=== PATIENT | male | born 1960 | race African-American/Black ===

== ENCOUNTER 2021-02-17 00:06 | Emergency (ER) | payer OTHER ==
[2021-02-17] MEDS ORDERED: Ketorolac Tromethamine 30 MG/ML VIAL ONE (00:47)
[2021-02-17 00:48] LABS: Bilirubin Neg (Negative); Blood, Urine Negative (Negative); Clarity Clear (Clear); Glucose, Urine (Dipstick) Normal (Negative); Ketone, Urine Negative (Negative); Leukocyte 100 (Negative); Nitrite Negative (Negative); Protein, Urine (Dipstick) Negative (Neg-Trace); Urobilinogen Normal mg/dL (Less than 2)
[2021-02-17 01:10] LABS: #Basophils 0.1 10x3/uL (0.0-0.2); #Eosinphils 0.2 10x3/uL (0.0-0.5); #Neutrophils 4.5 10x3/uL (1.5-8.4); %Basophils 0.7 % (0.0-2.0); %Eosinophils 2.5 % (0.0-6.0); %Monocytes 11.4 % (0.0-10.0); %Neutrophils 49.2 % (40.0-75.0); Hemoglobin 12.4 g/dL (13.5-17.5); Mean Corpuscular HGB CONC 32.7 g/dL (32.0-36.0); Mean Corpuscular Hemoglobin 28.1 pg (27.0-33.0); Mean Corpuscular Volume 85.9 fl (81.2-95.1); Mean Platelet Volume 9.1 fl (7.4-10.4); Platelet Count 252 10x3/uL (150-450); RBC Distribution Width 14.1 % (11.5-14.5); Red Blood Cell (RBC) Count 4.41 10x6/uL (4.32-5.72); White Blood Cell (WBC) Count 9.1 10x3/uL (3.5-10.5)
[2021-02-17 01:21] LABS: ALT (SGPT) 16 U/L (8-55); AST (SGOT) 15 U/L (5-34); Albumin 3.9 g/dL (3.4-4.8); Alkaline Phosphatase 84 U/L (40-110); Anion Gap 14 mmol/L (10-20); BUN (Urea Nitrogen) 17 mg/dL (8.4-25.7); Bilirubin, Total 0.4 mg/dL (0.2-1.2); Calc. Creatinine Clearance 0 mL/min (70-130); Calcium 8.7 mg/dL (7.8-10.44); Carbon Dioxide 27 mmol/L (23-31); Chloride 100 mmol/L (98-107); Globulin 3.4 g/dL (2.4-3.5); Glucose 105 mg/dL (80-115); Potassium 3.7 mmol/L (3.5-5.1); Protein, Total 7.3 g/dL (5.8-8.1); Sodium 137 mmol/L (136-145)
[2021-02-17 01:28] LABS: RBC/HPF None Seen HPF (0-3); Squamous Epithelial 0-3 HPF (0-3); Transitional Epithelial 0-3 HPF (None Seen)
[2021-02-17 01:29] LABS: Bacteria/HPF Rare-Few HPF (None Seen)
== END 2021-02-17 04:52 ==
LOC: CSHERS 00:06
DX: M54.6 Pain in thoracic spine (principal); L08.9 Local infection of the skin and subcutaneous tissue, unspecified; Z86.16 Personal history of COVID-19; K21.9 Gastro-esophageal reflux disease without esophagitis; I10 Essential (primary) hypertension; E78.00 Pure hypercholesterolemia, unspecified; J45.909 Unspecified asthma, uncomplicated; N40.0 Benign prostatic hyperplasia without lower urinary tract symptoms; G47.30 Sleep apnea, unspecified; Z79.82 Long term (current) use of aspirin; Z79.51 Long term (current) use of inhaled steroids; Z79.899 Other long term (current) drug therapy
CPT/HCPCS: 74176; 80053; 81003; 81015; 85025; 96374; J1885

== ENCOUNTER 2021-06-12 15:22 | Inpatient (IN) | payer OTHER ==
[2021-06-12 16:50] LABS: #Basophils 0.1 10x3/uL (0.0-0.2); #Eosinphils 0.4 10x3/uL (0.0-0.5); #Neutrophils 4.9 10x3/uL (1.5-8.4); %Basophils 0.6 % (0.0-2.0); %Eosinophils 4.4 % (0.0-6.0); %Lymphocytes 30.1 % (18.0-47.0); %Monocytes 10.7 % (0.0-10.0); Hemoglobin 12.4 g/dL (13.5-17.5); Mean Corpuscular HGB CONC 31.8 g/dL (32.0-36.0); Mean Corpuscular Hemoglobin 28.4 pg (27.0-33.0); Mean Corpuscular Volume 89.4 fl (81.2-95.1); Platelet Count 282 10x3/uL (150-450); RBC Distribution Width 13.8 % (11.5-14.5); Red Blood Cell (RBC) Count 4.36 10x6/uL (4.32-5.72); White Blood Cell (WBC) Count 9.1 10x3/uL (3.5-10.5)
[2021-06-12] MEDS ORDERED: HYDROcodone/Acetaminophen 7.5/325 mg Tablet ONE (16:56)
[2021-06-12 17:12] LABS: ALT (SGPT) 20 U/L (8-55); AST (SGOT) 23 U/L (5-34); Albumin 3.7 g/dL (3.4-4.8); Alkaline Phosphatase 77 U/L (40-110); Anion Gap 13 mmol/L (10-20); BUN (Urea Nitrogen) 14 mg/dL (8.4-25.7); Bilirubin, Total 0.3 mg/dL (0.2-1.2); Calc. Creatinine Clearance 0 mL/min (70-130); Calcium 9.2 mg/dL (7.8-10.44); Carbon Dioxide 29 mmol/L (23-31); Chloride 101 mmol/L (98-107); Globulin 3.6 g/dL (2.4-3.5); Glucose 101 mg/dL (80-115); Potassium 4.2 mmol/L (3.5-5.1); Protein, Total 7.3 g/dL (5.8-8.1); Sodium 139 mmol/L (136-145)
[2021-06-12] MEDS ORDERED: Ondansetron PF 4 MG/2 ML Vial IVP PRN (19:47)
[2021-06-12] MEDS ORDERED: Ondansetron ODT 4 MG TAB PO PRN (19:47)
[2021-06-12] MEDS ORDERED: Acetaminophen 325 MG TAB PO PRN (19:47)
[2021-06-12] MEDS: HYDROcodone/Acetaminophen 5/325 mg Tablet PO PRN (23:27)
[2021-06-12] MEDS ORDERED: Lisinopril 10 MG TAB PO SCH (23:30)
[2021-06-12] MEDS ORDERED: Atorvastatin Calcium 40 MG TAB PO SCH (23:30)
[2021-06-13 00:03] VITALS: BMI 53.7
[2021-06-13] MEDS: VANCOMYCIN 2 GRAM/400 ML BAG 2 GM in Premix Bag 1 BAG IVPB SCH ×2 (04:45→18:12)
[2021-06-13 05:17] LABS: #Basophils 0.1 10x3/uL (0.0-0.2); #Eosinphils 0.4 10x3/uL (0.0-0.5); #Monocytes 1.1 10x3/uL (0.0-1.1); #Neutrophils 4.5 10x3/uL (1.5-8.4); %Basophils 0.8 % (0.0-2.0); %Eosinophils 4.1 % (0.0-6.0); %Lymphocytes 28.4 % (18.0-47.0); %Neutrophils 53.2 % (40.0-75.0); Hemoglobin 12.3 g/dL (13.5-17.5); Mean Corpuscular HGB CONC 32.6 g/dL (32.0-36.0); Mean Corpuscular Hemoglobin 28.4 pg (27.0-33.0); Mean Corpuscular Volume 87.1 fl (81.2-95.1); Mean Platelet Volume 8.9 fl (7.4-10.4); Platelet Count 259 10x3/uL (150-450); Red Blood Cell (RBC) Count 4.33 10x6/uL (4.32-5.72); White Blood Cell (WBC) Count 8.5 10x3/uL (3.5-10.5)
[2021-06-13 05:22] LABS: ALT (SGPT) 17 U/L (8-55); AST (SGOT) 17 U/L (5-34); Albumin 3.4 g/dL (3.4-4.8); Alkaline Phosphatase 83 U/L (40-110); Anion Gap 14 mmol/L (10-20); BUN (Urea Nitrogen) 13 mg/dL (8.4-25.7); Bilirubin, Total 0.2 mg/dL (0.2-1.2); Calc. Creatinine Clearance 263 mL/min (70-130); Carbon Dioxide 24 mmol/L (23-31); Chloride 103 mmol/L (98-107); Globulin 3.5 g/dL (2.4-3.5); Glucose 102 mg/dL (80-115); Magnesium 2.1 mg/dL (1.6-2.6); Potassium 3.8 mmol/L (3.5-5.1); Protein, Total 6.9 g/dL (5.8-8.1); Sodium 137 mmol/L (136-145)
[2021-06-13] MEDS: HYDROcodone/Acetaminophen 5/325 mg Tablet PO PRN ×5 (05:55→22:28)
[2021-06-13] MEDS: Carvedilol 12.5 MG TAB PO SCH ×2 (08:21→18:10)
[2021-06-13] MEDS: Lisinopril 10 MG TAB PO SCH ×2 (08:21→22:25)
[2021-06-13] MEDS: Aspirin 81 mg Enteric Coated Tablet PO SCH (08:22)
[2021-06-13] MEDS: Enoxaparin Sodium 40 MG/0.4 ML SYRINGE SC SCH (08:22)
[2021-06-13] MEDS ORDERED: Amlodipine 5 MG TAB PO SCH (09:00)
[2021-06-13] MEDS ORDERED: Lidocaine 1% w/Epinephrine 1:100K 20 ML VIAL IJ SCH (13:45)
[2021-06-13 14:36] LABS: SARS-CoV-2 PCR by NAA Not Detected (NotDetected)
[2021-06-13] MEDS ORDERED: Atorvastatin Calcium 40 MG TAB PO SCH (21:00)
[2021-06-13] MEDS ORDERED: Carvedilol 12.5 MG TAB PO SCH (21:00)
[2021-06-13] MEDS: Atorvastatin Calcium 40 MG TAB PO SCH (22:26)
[2021-06-14] MEDS: HYDROcodone/Acetaminophen 5/325 mg Tablet PO PRN ×6 (02:17→21:54)
[2021-06-14 05:16] LABS: #Basophils 0.1 10x3/uL (0.0-0.2); #Eosinphils 0.3 10x3/uL (0.0-0.5); #Neutrophils 4.7 10x3/uL (1.5-8.4); %Basophils 0.7 % (0.0-2.0); %Lymphocytes 28.6 % (18.0-47.0); %Monocytes 11.3 % (0.0-10.0); %Neutrophils 55.2 % (40.0-75.0); Hemoglobin 12.4 g/dL (13.5-17.5); Mean Corpuscular HGB CONC 32.3 g/dL (32.0-36.0); Mean Corpuscular Hemoglobin 28.4 pg (27.0-33.0); Mean Corpuscular Volume 88.1 fl (81.2-95.1); Mean Platelet Volume 9.2 fl (7.4-10.4); Platelet Count 277 10x3/uL (150-450); RBC Distribution Width 13.7 % (11.5-14.5); Red Blood Cell (RBC) Count 4.36 10x6/uL (4.32-5.72); White Blood Cell (WBC) Count 8.4 10x3/uL (3.5-10.5)
[2021-06-14 05:26] LABS: Anion Gap 13 mmol/L (10-20); BUN (Urea Nitrogen) 12 mg/dL (8.4-25.7); Calc. Creatinine Clearance 259 mL/min (70-130); Calcium 9.3 mg/dL (7.8-10.44); Carbon Dioxide 25 mmol/L (23-31); Chloride 104 mmol/L (98-107); Glucose 105 mg/dL (80-115); Potassium 3.9 mmol/L (3.5-5.1); Sodium 138 mmol/L (136-145)
[2021-06-14] MEDS: VANCOMYCIN 2 GRAM/400 ML BAG 2 GM in Premix Bag 1 BAG IVPB SCH ×2 (05:53→18:17)
[2021-06-14] MEDS: Carvedilol 12.5 MG TAB PO SCH ×2 (08:19→18:17)
[2021-06-14] MEDS: Loratadine 10 MG TAB PO SCH (08:19)
[2021-06-14] MEDS: Hydrochlorothiazide 25 MG TAB PO SCH (08:19)
[2021-06-14] MEDS: Aspirin 81 mg Enteric Coated Tablet PO SCH (08:19)
[2021-06-14] MEDS: Amlodipine 10 MG TAB PO SCH (08:19)
[2021-06-14] MEDS: Enoxaparin Sodium 40 MG/0.4 ML SYRINGE SC SCH (08:19)
[2021-06-14] MEDS: Lisinopril 10 MG TAB PO SCH ×2 (08:19→21:54)
[2021-06-14] MEDS: FLUoxetine HCl 20 MG CAP PO SCH (08:19)
[2021-06-14] MEDS ORDERED: Non-Formulary Medication 1 EACH (Lisinopril [Lisinopril] 40 MG Tablet) PO SCH (09:00)
[2021-06-14] MEDS: Atorvastatin Calcium 40 MG TAB PO SCH (21:54)
[2021-06-15] MEDS: Vancomycin 1.5 GRAM/300 ML BAG 1.5 GM in Premix Bag 1 BAG IVPB SCH ×2 (00:58→10:02)
[2021-06-15] MEDS: HYDROcodone/Acetaminophen 5/325 mg Tablet PO PRN ×4 (01:03→14:07)
[2021-06-15 06:02] LABS: Anion Gap 14 mmol/L (10-20); BUN (Urea Nitrogen) 18 mg/dL (8.4-25.7); Calc. Creatinine Clearance 221 mL/min (70-130); Calcium 9.7 mg/dL (7.8-10.44); Carbon Dioxide 27 mmol/L (23-31); Chloride 100 mmol/L (98-107); Glucose 111 mg/dL (80-115); Sodium 137 mmol/L (136-145)
[2021-06-15 06:09] LABS: #Basophils 0.1 10x3/uL (0.0-0.2); #Eosinphils 0.4 10x3/uL (0.0-0.5); #Neutrophils 4.9 10x3/uL (1.5-8.4); %Basophils 0.5 % (0.0-2.0); %Eosinophils 4.4 % (0.0-6.0); %Lymphocytes 30.2 % (18.0-47.0); %Monocytes 10.9 % (0.0-10.0); %Neutrophils 53.6 % (40.0-75.0); Hemoglobin 12.5 g/dL (13.5-17.5); Mean Corpuscular HGB CONC 32.1 g/dL (32.0-36.0); Mean Corpuscular Hemoglobin 28.4 pg (27.0-33.0); Mean Corpuscular Volume 88.4 fl (81.2-95.1); Mean Platelet Volume 8.9 fl (7.4-10.4); Platelet Count 274 10x3/uL (150-450); RBC Distribution Width 13.7 % (11.5-14.5); White Blood Cell (WBC) Count 9.1 10x3/uL (3.5-10.5)
[2021-06-15] MEDS ORDERED: Ciprofloxacin 500 MG TAB PO SCH ×2 (08:45→20:00)
[2021-06-15] MEDS ORDERED: Cephalexin 500 MG CAP PO SCH (09:00)
[2021-06-15] MEDS: Enoxaparin Sodium 40 MG/0.4 ML SYRINGE SC SCH (10:08)
[2021-06-15] MEDS: FLUoxetine HCl 20 MG CAP PO SCH (10:08)
[2021-06-15] MEDS: Loratadine 10 MG TAB PO SCH (10:08)
[2021-06-15] MEDS: Lisinopril 10 MG TAB PO SCH (10:08)
[2021-06-15] MEDS: Aspirin 81 mg Enteric Coated Tablet PO SCH (10:08)
[2021-06-15] MEDS: Amlodipine 10 MG TAB PO SCH (10:09)
[2021-06-15] MEDS: Hydrochlorothiazide 25 MG TAB PO SCH (10:09)
[2021-06-15] MEDS: Carvedilol 12.5 MG TAB PO SCH (10:09)
[2021-06-15 12:03] VITALS: BP 168/98; TEMP 98.3
== END 2021-06-15 16:14 | DRG 603 ==
LOC: CSHERS 15:22 → CSHTELE 22:38
PROVIDERS: ADMIT Internal Medicine; ATTEND Internal Medicine
PROC: 0H9 Skin and Breast, Drainage (ICD-10-PCS; principal; 2021-06-13)
PROC: 0HBMXZZ Excision of Right Foot Skin, External Approach (ICD-10-PCS; 2021-06-13)
DX: L03.115 Cellulitis of right lower limb (principal); B19.10 Unspecified viral hepatitis B without hepatic coma; Z68.43 Body mass index [BMI] 50.0-59.9, adult; Z20.822 Contact with and (suspected) exposure to COVID-19; L02.415 Cutaneous abscess of right lower limb; I10 Essential (primary) hypertension; E78.5 Hyperlipidemia, unspecified; E66.01 Morbid (severe) obesity due to excess calories; Z71.3 Dietary counseling and surveillance; Z87.891 Personal history of nicotine dependence; Z91.018 Allergy to other foods; Z88.2 Allergy status to sulfonamides; Z79.82 Long term (current) use of aspirin; Z79.899 Other long term (current) drug therapy
CPT/HCPCS: 36415; 80048; 80053; 80202; 83735; 85025; 85652; 86140; 94760; 96365; 96366; J1650; J3370; U0003; U0005

== ENCOUNTER 2021-07-10 02:41 | Emergency (ER) | payer OTHER ==
[2021-07-10 03:52] LABS: #Eosinphils 0.4 10x3/uL (0.0-0.5); #Monocytes 1.1 10x3/uL (0.0-1.1); #Neutrophils 4.9 10x3/uL (1.5-8.4); %Basophils 0.4 % (0.0-2.0); %Eosinophils 4.3 % (0.0-6.0); %Lymphocytes 29.1 % (18.0-47.0); %Monocytes 12.3 % (0.0-10.0); %Neutrophils 53.6 % (40.0-75.0); Hemoglobin 11.2 g/dL (13.5-17.5); Mean Corpuscular HGB CONC 32.2 g/dL (32.0-36.0); Mean Corpuscular Hemoglobin 28.5 pg (27.0-33.0); Mean Corpuscular Volume 88.5 fl (81.2-95.1); Mean Platelet Volume 9.8 fl (7.4-10.4); Platelet Count 252 10x3/uL (150-450); RBC Distribution Width 14.6 % (11.5-14.5); Red Blood Cell (RBC) Count 3.93 10x6/uL (4.32-5.72); White Blood Cell (WBC) Count 9.1 10x3/uL (3.5-10.5)
[2021-07-10 04:04] LABS: ALT (SGPT) 19 U/L (8-55); AST (SGOT) 16 U/L (5-34); Albumin 3.7 g/dL (3.4-4.8); Alkaline Phosphatase 89 U/L (40-110); Anion Gap 14 mmol/L (10-20); BUN (Urea Nitrogen) 21 mg/dL (8.4-25.7); Bilirubin, Total 0.3 mg/dL (0.2-1.2); Calc. Creatinine Clearance 0 mL/min (70-130); Calcium 8.8 mg/dL (7.8-10.44); Carbon Dioxide 27 mmol/L (23-31); Chloride 104 mmol/L (98-107); Glucose 110 mg/dL (80-115); Lipase 43 U/L (8-78); Potassium 3.7 mmol/L (3.5-5.1); Protein, Total 6.7 g/dL (5.8-8.1); Sodium 141 mmol/L (136-145)
[2021-07-10] MEDS ORDERED: Amlodipine 10 MG TAB ONE (12:32)
[2021-07-10] MEDS ORDERED: Carvedilol 12.5 MG TAB ONE (12:33)
[2021-07-10] MEDS ORDERED: Aspirin Chewable 81 MG TAB ONE (12:34)
[2021-07-10] MEDS ORDERED: Lisinopril 10 MG TAB ONE (12:34)
[2021-07-10] MEDS ORDERED: Ibuprofen 200 MG TAB ONE (12:35)
== END 2021-07-10 14:57 | disposition short-term general hospital (02) ==
LOC: CSHERS 02:41
DX: R07.9 Chest pain, unspecified (principal); I10 Essential (primary) hypertension; K21.9 Gastro-esophageal reflux disease without esophagitis; Z79.82 Long term (current) use of aspirin; Z79.899 Other long term (current) drug therapy
CPT/HCPCS: 71045; 80053; 83690; 84484; 85025; 93005

== ENCOUNTER 2021-09-28 | Inpatient (IN) | payer OTHER ==
[2021-09-28 00:31] LABS: #Basophils 0.1 10x3/uL (0.0-0.2); #Eosinphils 0.4 10x3/uL (0.0-0.5); #Monocytes 0.9 10x3/uL (0.0-1.1); #Neutrophils 5.8 10x3/uL (1.5-8.4); %Basophils 0.5 % (0.0-2.0); %Eosinophils 3.6 % (0.0-6.0); %Lymphocytes 27.7 % (18.0-47.0); %Monocytes 9.5 % (0.0-10.0); %Neutrophils 58.5 % (40.0-75.0); Hemoglobin 11.7 g/dL (13.5-17.5); Mean Corpuscular HGB CONC 32.1 g/dL (32.0-36.0); Mean Corpuscular Hemoglobin 28.2 pg (27.0-33.0); Mean Platelet Volume 9.1 fl (7.4-10.4); Platelet Count 255 10x3/uL (150-450); RBC Distribution Width 14.1 % (11.5-14.5); Red Blood Cell (RBC) Count 4.15 10x6/uL (4.32-5.72); White Blood Cell (WBC) Count 9.9 10x3/uL (3.5-10.5)
[2021-09-28 00:46] LABS: ALT (SGPT) 21 U/L (8-55); AST (SGOT) 18 U/L (5-34); Albumin 3.9 g/dL (3.4-4.8); Alkaline Phosphatase 82 U/L (40-110); Anion Gap 11 mmol/L (10-20); BUN (Urea Nitrogen) 12 mg/dL (8.4-25.7); Bilirubin, Total 0.3 mg/dL (0.2-1.2); Calc. Creatinine Clearance 0 mL/min (70-130); Calcium 8.2 mg/dL (7.8-10.44); Carbon Dioxide 27 mmol/L (23-31); Chloride 102 mmol/L (98-107); Globulin 3.2 g/dL (2.4-3.5); Glucose 103 mg/dL (80-115); Potassium 3.9 mmol/L (3.5-5.1); Protein, Total 7.1 g/dL (5.8-8.1); Sodium 136 mmol/L (136-145)
[2021-09-28] MEDS ORDERED: Morphine 4 MG/ML VIAL ONE (01:14)
[2021-09-28] MEDS ORDERED: Nitroglycerin 2% Ointment 1 INCH/1 GM Packet ONE (01:15)
[2021-09-28] MEDS ORDERED: Furosemide 40 MG/4 ML VIAL ONE (01:15)
[2021-09-28] MEDS ORDERED: Nitroglycerin 0.4 MG TAB (25 Tab Bottle) SL PRN (04:57)
[2021-09-28] MEDS ORDERED: Senokot S 8.6-50 MG TAB PO PRN (04:57)
[2021-09-28] MEDS ORDERED: Acetaminophen 325 MG TAB PO PRN (04:57)
[2021-09-28] MEDS ORDERED: Ondansetron PF 4 MG/2 ML Vial IVP PRN (04:57)
[2021-09-28] MEDS ORDERED: Calcium Carbonate 500 MG ChewTAB PO PRN (04:57)
[2021-09-28] MEDS: HYDROcodone/Acetaminophen 5/325 mg Tablet PO PRN ×3 (06:20→21:14)
[2021-09-28] MEDS ORDERED: HYDROcodone/Acetaminophen 5/325 mg Tablet ONE ×2 (06:22→12:15)
[2021-09-28] MEDS ORDERED: Furosemide 40 MG TAB ONE (07:21)
[2021-09-28] MEDS: Furosemide 40 MG TAB PO SCH (07:29)
[2021-09-28 07:38] LABS: Troponin I Less than 0.010 ng/mL (< 0.028)
[2021-09-28] MEDS ORDERED: Enoxaparin Sodium 40 MG/0.4 ML SYRINGE SC SCH (09:00)
[2021-09-28] MEDS ORDERED: Aspirin Chewable 81 MG TAB ONE (09:05)
[2021-09-28] MEDS ORDERED: Enoxaparin Sodium 40 MG/0.4 ML SYRINGE ONE (09:06)
[2021-09-28] MEDS ORDERED: Amlodipine 5 MG TAB ONE (09:07)
[2021-09-28] MEDS ORDERED: Communication Order-Pharmacy FS SCH (09:30)
[2021-09-28] MEDS: Aspirin Chewable 81 MG TAB PO SCH (10:17)
[2021-09-28] MEDS: Amlodipine 10 MG TAB PO SCH (10:17)
[2021-09-28] MEDS: Loratadine 10 MG TAB PO SCH (10:18)
[2021-09-28] MEDS: Carvedilol 12.5 MG TAB PO SCH ×2 (10:18→21:15)
[2021-09-28] MEDS: Lisinopril 20 MG TAB PO SCH (10:18)
[2021-09-28] MEDS: Venlafaxine XR 37.5 MG CAP PO SCH (10:19)
[2021-09-28 11:52] LABS: Troponin I Less than 0.010 ng/mL (< 0.028)
[2021-09-28 13:36] LABS: SARS-CoV-2 NAA Rapid Test Not Detected (NotDetected)
[2021-09-28 14:07] LABS: Cardiac Risk 4.1 (Less than 4.5)
[2021-09-28] MEDS ORDERED: Ventolin HFA Inhaler 60 PUFF INHALER INH PRN (14:30)
[2021-09-28] MEDS ORDERED: FLU VACC QS2021-22(6MOS UP)/PF 60 MCG/0.5 ML SYRINGE IM ONE (14:45)
[2021-09-28 16:00] VITALS: BMI 58.8
[2021-09-28] MEDS ORDERED: Atorvastatin Calcium 40 MG TAB PO SCH (21:00)
[2021-09-29 04:21] LABS: INR-International Normal Ratio 0.9; PTT 27.1 sec (22.0-33.0); Prothrombin Time 10.3 sec (9.5-12.1)
[2021-09-29 04:23] LABS: ALT (SGPT) 21 U/L (8-55); AST (SGOT) 16 U/L (5-34); Albumin 3.7 g/dL (3.4-4.8); Alkaline Phosphatase 88 U/L (40-110); Anion Gap 9 mmol/L (10-20); BUN (Urea Nitrogen) 12 mg/dL (8.4-25.7); Bilirubin, Total 0.3 mg/dL (0.2-1.2); Calc. Creatinine Clearance 260 mL/min (70-130); Calcium 8.7 mg/dL (7.8-10.44); Carbon Dioxide 33 mmol/L (23-31); Chloride 100 mmol/L (98-107); Globulin 3.7 g/dL (2.4-3.5); Glucose 117 mg/dL (80-115); Potassium 4.3 mmol/L (3.5-5.1); Protein, Total 7.4 g/dL (5.8-8.1); Sodium 138 mmol/L (136-145)
[2021-09-29 04:34] LABS: #Basophils 0.1 10x3/uL (0.0-0.2); #Eosinphils 0.4 10x3/uL (0.0-0.5); #Neutrophils 5.7 10x3/uL (1.5-8.4); %Basophils 0.6 % (0.0-2.0); %Eosinophils 4.4 % (0.0-6.0); %Lymphocytes 20.4 % (18.0-47.0); %Monocytes 11.3 % (0.0-10.0); Hemoglobin 12.3 g/dL (13.5-17.5); Mean Corpuscular HGB CONC 32.2 g/dL (32.0-36.0); Mean Corpuscular Hemoglobin 28.7 pg (27.0-33.0); Mean Platelet Volume 9.2 fl (7.4-10.4); Platelet Count 251 10x3/uL (150-450); Red Blood Cell (RBC) Count 4.29 10x6/uL (4.32-5.72)
[2021-09-29] MEDS ORDERED: hydrALAZINE 20 MG/ML VIAL SLOW IVP PRN (08:10)
[2021-09-29] MEDS: Furosemide 40 MG TAB PO SCH (08:40)
[2021-09-29] MEDS: Carvedilol 12.5 MG TAB PO SCH (08:41)
[2021-09-29] MEDS: Amlodipine 10 MG TAB PO SCH (08:41)
[2021-09-29] MEDS: Aspirin Chewable 81 MG TAB PO SCH (08:41)
[2021-09-29] MEDS: Loratadine 10 MG TAB PO SCH (08:41)
[2021-09-29] MEDS: Lisinopril 20 MG TAB PO SCH (08:41)
[2021-09-29] MEDS: Venlafaxine XR 37.5 MG CAP PO SCH (10:01)
[2021-09-29] MEDS ORDERED: Nitroglycerin 50 MG/250 ML BOT 250 ML ONE (13:22)
[2021-09-29] MEDS ORDERED: Lidocaine 1% PF 5 ML VIAL ONE (13:22)
[2021-09-29] MEDS ORDERED: Heparin 10,000 UNITS/ 10 ML VIAL ONE (13:22)
[2021-09-29] MEDS ORDERED: Verapamil 5 MG/2 ML VIAL ONE ×3 (13:23→14:18)
[2021-09-29] MEDS ORDERED: Adenosine 6 MG/2 ML VIAL ONE (13:23)
[2021-09-29] MEDS ORDERED: Bivalirudin 250 MG VIAL ONE (13:24)
[2021-09-29] MEDS ORDERED: Sodium Chloride 0.9% 1,000 ML ONE (13:24)
[2021-09-29] MEDS ORDERED: Fentanyl 100 MCG/2 ML VIAL ONE (14:16)
[2021-09-29] MEDS ORDERED: Midazolam HCl 2 mg/2 ml Vial ONE ×2 (14:17→14:34)
[2021-09-29] MEDS ORDERED: Lidocaine 1% (PF) 30 ML VIAL ONE (14:33)
[2021-09-29] MEDS ORDERED: Acetaminophen/Codeine 30-300mg Tablet PO PRN ×2 (14:46)
[2021-09-29] MEDS ORDERED: Nitroglycerin 0.4 MG TAB (25 Tab Bottle) SL PRN (14:46)
[2021-09-29] MEDS ORDERED: Sodium Chloride 0.9% 200 ML IV PRN (14:46)
[2021-09-29 15:49] VITALS: TEMP 97.5
[2021-09-29] MEDS ORDERED: Carvedilol 25 MG TAB PO SCH (17:00)
[2021-09-29 17:18] VITALS: BP 149/92
== END 2021-09-29 22:25 | DRG 287 ==
LOC: EEVIPCON → CSHERS → INTOOBSV 00:01 → CSHERHOLD 00:01 → OBSVTOIN 00:01 → CSHIMCU 12:49
PROVIDERS: ADMIT Student in an Organized Health Care Education/Training Program; ATTEND Family Medicine
PROC: 4A023N7 Measurement of Cardiac Sampling and Pressure, Left Heart, Percutaneous Approach (ICD-10-PCS; principal; 2021-09-29)
PROC: B2111ZZ Fluoroscopy of Multiple Coronary Arteries using Low Osmolar Contrast (ICD-10-PCS; 2021-09-29)
PROC: B2151ZZ Fluoroscopy of Left Heart using Low Osmolar Contrast (ICD-10-PCS; 2021-09-29)
DX: R07.89 Other chest pain (principal); Z68.43 Body mass index [BMI] 50.0-59.9, adult; Z20.822 Contact with and (suspected) exposure to COVID-19; I10 Essential (primary) hypertension; G47.33 Obstructive sleep apnea (adult) (pediatric); E66.01 Morbid (severe) obesity due to excess calories; J45.909 Unspecified asthma, uncomplicated; K21.9 Gastro-esophageal reflux disease without esophagitis; E78.2 Mixed hyperlipidemia; B18.2 Chronic viral hepatitis C; D63.8 Anemia in other chronic diseases classified elsewhere; M25.512 Pain in left shoulder; M79.89 Other specified soft tissue disorders; F32.A Depression, unspecified; Z88.2 Allergy status to sulfonamides; Z91.010 Allergy to peanuts; Z88.8 Allergy status to other drugs, medicaments and biological substances; Z79.82 Long term (current) use of aspirin; Z79.899 Other long term (current) drug therapy; Z98.890 Other specified postprocedural states; Z87.891 Personal history of nicotine dependence; Z79.51 Long term (current) use of inhaled steroids
CPT/HCPCS: 36415; 71045; 80053; 80061; 83880; 84443; 84484; 85025; 85610; 85730; 93005; 93306; 93458; 93970; 96374; 96375; 99152; 99153; C1760; J0153; J0360; J0583; J1644; J1650; J1940; J2001; J2250; J2270; J3010; J7050; U0002

== ENCOUNTER 2021-11-09 19:47 | Emergency (ER) | payer OTHER ==
[2021-11-09 20:40] LABS: #Basophils 0.1 10x3/uL (0.0-0.2); #Eosinphils 0.4 10x3/uL (0.0-0.5); #Monocytes 0.9 10x3/uL (0.0-1.1); #Neutrophils 5.9 10x3/uL (1.5-8.4); %Basophils 0.5 % (0.0-2.0); %Eosinophils 3.8 % (0.0-6.0); %Lymphocytes 30.1 % (18.0-47.0); %Monocytes 8.6 % (0.0-10.0); %Neutrophils 56.9 % (40.0-75.0); Hemoglobin 12.9 g/dL (13.5-17.5); Mean Corpuscular HGB CONC 32.2 g/dL (32.0-36.0); Mean Corpuscular Hemoglobin 27.8 pg (27.0-33.0); Mean Corpuscular Volume 86.4 fl (81.2-95.1); Platelet Count 289 10x3/uL (150-450); RBC Distribution Width 14.7 % (11.5-14.5); Red Blood Cell (RBC) Count 4.64 10x6/uL (4.32-5.72); White Blood Cell (WBC) Count 10.3 10x3/uL (3.5-10.5)
[2021-11-09 20:48] LABS: ALT (SGPT) 26 U/L (8-55); AST (SGOT) 18 U/L (5-34); Albumin 4.1 g/dL (3.4-4.8); Alkaline Phosphatase 89 U/L (40-110); Anion Gap 14 mmol/L (10-20); BUN (Urea Nitrogen) 21 mg/dL (8.4-25.7); Bilirubin, Total 0.3 mg/dL (0.2-1.2); Calc. Creatinine Clearance 0 mL/min (70-130); Calcium 8.8 mg/dL (7.8-10.44); Carbon Dioxide 26 mmol/L (23-31); Chloride 100 mmol/L (98-107); Globulin 3.4 g/dL (2.4-3.5); Glucose 129 mg/dL (80-115); Potassium 3.4 mmol/L (3.5-5.1); Protein, Total 7.5 g/dL (5.8-8.1); Sodium 137 mmol/L (136-145)
[2021-11-09] MEDS ORDERED: Ketorolac Tromethamine 30 MG/ML VIAL ONE (22:14)
== END 2021-11-10 00:59 ==
LOC: EEVIPCON 19:47 → CSHERS 19:47
DX: R55 Syncope and collapse (principal); E11.9 Type 2 diabetes mellitus without complications; K21.9 Gastro-esophageal reflux disease without esophagitis; N40.0 Benign prostatic hyperplasia without lower urinary tract symptoms; M19.90 Unspecified osteoarthritis, unspecified site
CPT/HCPCS: 70450; 80053; 84484; 85025; 93005; 93010; 96372; J1885

== ENCOUNTER 2022-02-20 19:37 | Emergency (ER) | payer OTHER ==
[2022-02-20 21:06] LABS: #Eosinphils 0.3 10x3/uL (0.0-0.5); #Monocytes 0.8 10x3/uL (0.0-1.1); #Neutrophils 4.4 10x3/uL (1.5-8.4); %Basophils 0.3 % (0.0-2.0); %Eosinophils 3.9 % (0.0-6.0); %Lymphocytes 35.8 % (18.0-47.0); %Monocytes 9.5 % (0.0-10.0); %Neutrophils 50.3 % (40.0-75.0); Hemoglobin 12.6 g/dL (13.5-17.5); Mean Corpuscular Hemoglobin 27.5 pg (27.0-33.0); Mean Platelet Volume 9.3 fl (7.4-10.4); Platelet Count 253 10x3/uL (150-450); RBC Distribution Width 14.7 % (11.5-14.5); Red Blood Cell (RBC) Count 4.58 10x6/uL (4.32-5.72); White Blood Cell (WBC) Count 8.8 10x3/uL (3.5-10.5)
[2022-02-20 21:23] LABS: ALT (SGPT) 21 U/L (8-55); AST (SGOT) 18 U/L (5-34); Alkaline Phosphatase 74 U/L (40-110); Anion Gap 13 mmol/L (10-20); BUN (Urea Nitrogen) 21 mg/dL (8.4-25.7); Bilirubin, Total 0.3 mg/dL (0.2-1.2); CK (CPK) 348 U/L (30-200); Calc. Creatinine Clearance 0 mL/min (70-130); Carbon Dioxide 28 mmol/L (23-31); Chloride 99 mmol/L (98-107); Globulin 3.5 g/dL (2.4-3.5); Glucose 96 mg/dL (80-115); Potassium 3.6 mmol/L (3.5-5.1); Protein, Total 7.5 g/dL (5.8-8.1); Sodium 136 mmol/L (136-145)
[2022-02-20 21:29] LABS: SARS-CoV-2 NAA Rapid Test Not Detected (NotDetected)
[2022-02-20 22:56] LABS: Troponin I Less than 0.010 ng/mL (< 0.028)
== END 2022-02-20 23:39 ==
LOC: CSHERS 19:37
DX: R07.89 Other chest pain (principal); M16.12 Unilateral primary osteoarthritis, left hip; Z20.822 Contact with and (suspected) exposure to COVID-19
CPT/HCPCS: 36415; 71045; 80053; 82550; 84484; 85025; 93005; U0002

== ENCOUNTER 2022-03-31 00:36 | Emergency (ER) | payer OTHER ==
[2022-03-31 01:18] LABS: #Basophils 0.1 10x3/uL (0.0-0.2); #Eosinphils 0.5 10x3/uL (0.0-0.5); #Monocytes 0.8 10x3/uL (0.0-1.1); #Neutrophils 3.5 10x3/uL (1.5-8.4); %Basophils 0.7 % (0.0-2.0); %Eosinophils 6.9 % (0.0-6.0); %Lymphocytes 34.9 % (18.0-47.0); %Monocytes 10.5 % (0.0-10.0); %Neutrophils 46.7 % (40.0-75.0); Hemoglobin 12.4 g/dL (13.5-17.5); Mean Corpuscular HGB CONC 33.5 g/dL (32.0-36.0); Mean Corpuscular Hemoglobin 28.4 pg (27.0-33.0); Mean Corpuscular Volume 84.9 fl (81.2-95.1); Mean Platelet Volume 8.9 fl (7.4-10.4); Platelet Count 257 10x3/uL (150-450); RBC Distribution Width 15.3 % (11.5-14.5); Red Blood Cell (RBC) Count 4.36 10x6/uL (4.32-5.72); White Blood Cell (WBC) Count 7.5 10x3/uL (3.5-10.5)
[2022-03-31 01:29] LABS: ALT (SGPT) 37 U/L (8-55); AST (SGOT) 32 U/L (5-34); Albumin 3.8 g/dL (3.4-4.8); Alkaline Phosphatase 97 U/L (40-110); Anion Gap 14 mmol/L (10-20); BUN (Urea Nitrogen) 19 mg/dL (8.4-25.7); Bilirubin, Total 0.2 mg/dL (0.2-1.2); Calc. Creatinine Clearance 0 mL/min (70-130); Calcium 8.4 mg/dL (7.8-10.44); Carbon Dioxide 24 mmol/L (23-31); Chloride 103 mmol/L (98-107); Globulin 3.2 g/dL (2.4-3.5); Glucose 117 mg/dL (80-115); Potassium 3.5 mmol/L (3.5-5.1); Sodium 137 mmol/L (136-145)
[2022-03-31 02:01] LABS: SARS-CoV-2 NAA Rapid Test Not Detected (NotDetected)
[2022-03-31] MEDS ORDERED: Acetaminophen 500 MG TAB ONE (03:04)
[2022-03-31 04:14] LABS: Troponin I Less than 0.010 ng/mL (< 0.028)
== END 2022-03-31 04:33 ==
LOC: CSHERS 00:36
DX: R07.89 Other chest pain (principal); M25.552 Pain in left hip; G89.29 Other chronic pain; I10 Essential (primary) hypertension; K21.9 Gastro-esophageal reflux disease without esophagitis; Z79.899 Other long term (current) drug therapy; Z20.822 Contact with and (suspected) exposure to COVID-19
CPT/HCPCS: 71045; 80053; 84484; 85025; 93005; U0002

== ENCOUNTER 2023-02-18 21:01 | Emergency (ER) | payer OTHER ==
[2023-02-18 22:03] LABS: ALT (SGPT) 21 U/L (8-55); AST (SGOT) 14 U/L (5-34); Albumin 3.7 g/dL (3.4-4.8); Alkaline Phosphatase 80 U/L (40-110); Anion Gap 12 mmol/L (10-20); BUN (Urea Nitrogen) 19 mg/dL (8.4-25.7); Bilirubin, Total 0.2 mg/dL (0.2-1.2); Calc. Creatinine Clearance 0 mL/min (70-130); Calcium 8.6 mg/dL (7.8-10.44); Carbon Dioxide 28 mmol/L (23-31); Chloride 104 mmol/L (98-107); Estimated GFR 101; Globulin 3.3 g/dL (2.4-3.5); Glucose 96 mg/dL (80-115); Potassium 3.9 mmol/L (3.5-5.1); Sodium 140 mmol/L (136-145)
[2023-02-18 22:04] LABS: #Eosinphils 0.5 10x3/uL (0.0-0.5); #Monocytes 0.8 10x3/uL (0.0-1.1); #Neutrophils 3.7 10x3/uL (1.5-8.4); %Basophils 0.4 % (0.0-2.0); %Eosinophils 5.9 % (0.0-6.0); %Monocytes 10.5 % (0.0-10.0); %Neutrophils 47.9 % (40.0-75.0); Hemoglobin 11.5 g/dL (13.5-17.5); Mean Corpuscular HGB CONC 32.2 g/dL (32.0-36.0); Mean Corpuscular Hemoglobin 28.1 pg (27.0-33.0); Mean Corpuscular Volume 87.3 fl (81.2-95.1); Mean Platelet Volume 9.3 fl (7.4-10.4); Platelet Count 237 10x3/uL (150-450); RBC Distribution Width 15.3 % (11.5-14.5); Red Blood Cell (RBC) Count 4.09 10x6/uL (4.32-5.72); White Blood Cell (WBC) Count 7.8 10x3/uL (3.5-10.5)
[2023-02-18 22:15] LABS: SARS-CoV-2 NAA Rapid Test Not Detected (NotDetected)
[2023-02-19 00:07] LABS: Troponin I Less than 0.010 ng/mL (< 0.028)
== END 2023-02-19 00:15 ==
LOC: CSHERS 21:01 → EEVIPCON 21:01 → CSHERS 02-19 00:15
DX: R07.9 Chest pain, unspecified (principal); Z20.822 Contact with and (suspected) exposure to COVID-19; I11.0 Hypertensive heart disease with heart failure; I50.9 Heart failure, unspecified; K21.9 Gastro-esophageal reflux disease without esophagitis; E11.9 Type 2 diabetes mellitus without complications; N40.0 Benign prostatic hyperplasia without lower urinary tract symptoms; Z79.899 Other long term (current) drug therapy; Z79.82 Long term (current) use of aspirin; Z79.84 Long term (current) use of oral hypoglycemic drugs
CPT/HCPCS: 36415; 71045; 80053; 83880; 84484; 85025; 93005; U0002

== ENCOUNTER 2023-12-04 14:52 | Inpatient (IN) | payer OTHER ==
[2023-12-04 15:51] LABS: #Eosinphils 0.2 10x3/uL (0.0-0.5); #Monocytes 0.7 10x3/uL (0.0-1.1); #Neutrophils 4.2 10x3/uL (1.5-8.4); %Basophils 0.5 % (0.0-2.0); %Eosinophils 2.7 % (0.0-6.0); %Lymphocytes 29.6 % (18.0-47.0); %Neutrophils 57.1 % (40.0-75.0); Hematocrit 37.7 % (38.8-50.0); Hemoglobin 12.9 g/dL (13.5-17.5); Mean Corpuscular HGB CONC 34.2 g/dL (32.0-36.0); Mean Corpuscular Hemoglobin 29.7 pg (27.0-33.0); Mean Corpuscular Volume 86.9 fl (81.2-95.1); Mean Platelet Volume 8.9 fl (7.4-10.4); Platelet Count 244 10x3/uL (150-450); RBC Distribution Width 14.6 % (11.5-14.5); Red Blood Cell (RBC) Count 4.34 10x6/uL (4.32-5.72); White Blood Cell (WBC) Count 7.4 10x3/uL (3.5-10.5)
[2023-12-04 16:00] LABS: ALT (SGPT) 15 U/L (8-55); AST (SGOT) 15 U/L (5-34); Albumin 3.7 g/dL (3.4-4.8); Alkaline Phosphatase 78 U/L (40-110); Anion Gap 12 mmol/L (10-20); BUN (Urea Nitrogen) 16 mg/dL (8.4-25.7); Bilirubin, Total 0.3 mg/dL (0.2-1.2); Calc. Creatinine Clearance 0 mL/min (70-130); Calcium 8.1 mg/dL (7.8-10.44); Carbon Dioxide 26 mmol/L (23-31); Chloride 102 mmol/L (98-107); Estimated GFR 102; Globulin 2.9 g/dL (2.4-3.5); Glucose 94 mg/dL (80-115); Potassium 3.6 mmol/L (3.5-5.1); Protein, Total 6.6 g/dL (5.8-8.1); Sodium 136 mmol/L (136-145)
[2023-12-04 16:06] LABS: Troponin I Less than 0.010 ng/mL (< 0.028)
[2023-12-04 18:42] LABS: Troponin I Less than 0.010 ng/mL (< 0.028)
[2023-12-04] MEDS ORDERED: Nitroglycerin 0.4 MG TAB (25 Tab Bottle) SL PRN (21:25)
[2023-12-04] MEDS: Nitroglycerin 2% Ointment 1 INCH/1 GM Packet TOP SCH (21:45)
[2023-12-04 22:18] LABS: Troponin I Less than 0.010 ng/mL (< 0.028)
[2023-12-04 22:51] VITALS: BMI 54.1
[2023-12-04] MEDS: HYDROcodone/Acetaminophen 5/325 mg Tablet PO PRN (23:42)
[2023-12-05 01:16] LABS: Troponin I 0.021 ng/mL (< 0.028)
[2023-12-05 03:56] LABS: Cardiac Risk 3.7 (Less than 4.5)
[2023-12-05] MEDS ORDERED: Furosemide 40 MG TAB PO SCH (09:00)
[2023-12-05] MEDS ORDERED: Albuterol 2.5 MG (3 mL) NEB NEB PRN (09:11)
[2023-12-05] MEDS: Carvedilol 12.5 MG TAB PO SCH ×2 (09:36→17:12)
[2023-12-05] MEDS: Enoxaparin 40 MG (0.4 mL) SYRINGE SC SCH (09:36)
[2023-12-05] MEDS: Amlodipine 10 MG TAB PO SCH (09:36)
[2023-12-05] MEDS: Lactulose 20 GM (30 mL) UDCUP PO SCH ×2 (09:37→21:06)
[2023-12-05] MEDS: Aspirin 325 MG TAB PO SCH (09:37)
[2023-12-05] MEDS: Valsartan 80 MG TAB PO SCH (13:45)
[2023-12-05] MEDS ORDERED: hydrALAZINE 20 MG/ML VIAL SLOW IVP PRN (14:57)
[2023-12-05] MEDS: Atorvastatin Calcium 40 MG TAB PO SCH (21:05)
[2023-12-05] MEDS: Hydrochlorothiazide 25 MG TAB PO SCH (21:05)
[2023-12-06] MEDS ORDERED: Acetaminophen 325 MG TAB PO PRN (08:09)
[2023-12-06] MEDS: Amlodipine 10 MG TAB PO SCH (08:36)
[2023-12-06] MEDS: Valsartan 80 MG TAB PO SCH (08:37)
[2023-12-06 12:22] VITALS: BP 155/83; TEMP 98
== END 2023-12-06 12:53 | DRG 313 ==
LOC: CSHERS 14:52 → EEVIPCON 14:52 → CSHTELE 20:10 → OBSVTOIN 12-06 08:09
PROVIDERS: ADMIT Hospitalist; ATTEND Physician Assistant
DX: R07.89 Other chest pain (principal); Z68.43 Body mass index [BMI] 50.0-59.9, adult; I50.9 Heart failure, unspecified; I11.0 Hypertensive heart disease with heart failure; J45.909 Unspecified asthma, uncomplicated; G47.33 Obstructive sleep apnea (adult) (pediatric); K21.9 Gastro-esophageal reflux disease without esophagitis; K74.60 Unspecified cirrhosis of liver; F31.9 Bipolar disorder, unspecified; M19.90 Unspecified osteoarthritis, unspecified site; E66.01 Morbid (severe) obesity due to excess calories; N40.0 Benign prostatic hyperplasia without lower urinary tract symptoms; Z98.890 Other specified postprocedural states; Z91.010 Allergy to peanuts; Z88.2 Allergy status to sulfonamides; Z91.018 Allergy to other foods; Z91.09 Other allergy status, other than to drugs and biological substances; Z79.82 Long term (current) use of aspirin; Z79.899 Other long term (current) drug therapy
CPT/HCPCS: 36415; 36416; 71045; 80053; 80061; 84484; 85025; 93005; 93306; J1650

== ENCOUNTER 2024-11-08 00:31 | Emergency (ER) | payer OTHER ==
[2024-11-08 01:18] LABS: #Basophils 0.04 10x3/uL (0.0-0.2); #Eosinophils 0.35 10x3/uL (0.0-0.5); #Monocytes 0.67 10x3/uL (0.0-1.1); %Basophils 0.6 % (0.0-2.0); %Eosinophils 5.1 % (0.0-6.0); %Lymphocytes 33.5 % (18.0-47.0); %Monocytes 9.8 % (0.0-10.0); %Neutrophils 50.9 % (40.0-75.0); Hemoglobin 12.6 g/dL (13.5-17.5); Mean Corpuscular HGB CONC 33.2 g/dL (32.0-36.0); Mean Corpuscular Volume 87.6 fL (81.2-95.1); Mean Platelet Volume 9.4 fL (7.4-10.4); Platelet Count 251 10x3/uL (150-450); RBC Distribution Width 14.7 % (11.5-14.5); Red Blood Cell (RBC) Count 4.34 10x6/uL (4.32-5.72); White Blood Cell (WBC) Count 6.87 10x3/uL (3.5-10.5)
[2024-11-08 01:37] LABS: ALT (SGPT) 29 U/L (8-55); AST (SGOT) 17 U/L (5-34); Albumin 3.6 g/dL (3.4-4.8); Alkaline Phosphatase 81 U/L (40-110); Anion Gap 16 mmol/L (10-20); BUN (Urea Nitrogen) 19 mg/dL (8.4-25.7); Bilirubin, Total 0.2 mg/dL (0.2-1.2); Calc. Creatinine Clearance 0 mL/min (70-130); Calcium 8.9 mg/dL (7.8-10.44); Carbon Dioxide 23 mmol/L (23-31); Chloride 106 mmol/L (98-107); Estimated GFR 97; Globulin 3.6 g/dL (2.4-3.5); Glucose 117 mg/dL (80-115); Potassium 3.6 mmol/L (3.5-5.1); Protein, Total 7.2 g/dL (5.8-8.1); Sodium 141 mmol/L (136-145)
[2024-11-08 01:43] LABS: Troponin I Less than 0.010 ng/mL (< 0.028)
[2024-11-08 03:55] LABS: Troponin I Less than 0.010 ng/mL (< 0.028)
[2024-11-08] MEDS ORDERED: Ketorolac Tromethamine 30 MG (1 mL) VIAL ONE (04:07)
== END 2024-11-08 04:27 ==
LOC: CSHERS 00:31
DX: R07.9 Chest pain, unspecified (principal); R06.02 Shortness of breath; I11.0 Hypertensive heart disease with heart failure; I50.9 Heart failure, unspecified; E11.9 Type 2 diabetes mellitus without complications; K21.9 Gastro-esophageal reflux disease without esophagitis; Z79.82 Long term (current) use of aspirin; Z79.84 Long term (current) use of oral hypoglycemic drugs; Z79.899 Other long term (current) drug therapy
CPT/HCPCS: 36415; 71045; 80053; 83880; 84484; 85025; 93005; 96374; J1885

== ENCOUNTER 2025-06-04 23:50 | Emergency (ER) | payer OTHER ==
[2025-06-05] MEDS ORDERED: Droperidol 5 MG/2 ML VIAL ONE (00:18)
[2025-06-05 00:34] LABS: #Basophils 0.04 10x3/uL (0.0-0.2); #Eosinophils 0.33 10x3/uL (0.0-0.5); #Monocytes 0.67 10x3/uL (0.0-1.1); #Neutrophils 4.44 10x3/uL (1.5-8.4); %Basophils 0.5 % (0.0-2.0); %Eosinophils 4.2 % (0.0-6.0); %Lymphocytes 30.6 % (18.0-47.0); %Monocytes 8.4 % (0.0-10.0); %Neutrophils 56.0 % (40.0-75.0); Hematocrit 37.6 % (38.8-50.0); Hemoglobin 12.0 g/dL (13.5-17.5); Mean Corpuscular Hemoglobin 27.8 pg (27.0-33.0); Mean Corpuscular Volume 87.0 fL (81.2-95.1); Platelet Count 245 10x3/uL (150-450); Red Blood Cell (RBC) Count 4.32 10x6/uL (4.32-5.72); White Blood Cell (WBC) Count 7.93 10x3/uL (3.5-10.5)
[2025-06-05 00:49] LABS: ALT (SGPT) 20 U/L (Less than 45); AST (SGOT) 19 U/L (11-34); Albumin 3.7 g/dL (3.1-4.5); Alkaline Phosphatase 75 U/L (40-110); Anion Gap 11 mmol/L (10-20); BUN (Urea Nitrogen) 18 mg/dL (8.4-25.7); Bilirubin, Total 0.2 mg/dL (0.3-1.2); Calc. Creatinine Clearance 0 mL/min (70-130); Calcium 8.4 mg/dL (7.8-10.44); Carbon Dioxide 28 mmol/L (23-31); Chloride 102 mmol/L (98-107); Globulin 3.8 g/dL (2.4-3.5); Glucose 108 mg/dL (80-115); Potassium 3.8 mmol/L (3.5-5.1); Sodium 137 mmol/L (136-145)
[2025-06-05 00:55] LABS: Troponin I Less than 0.010 ng/mL (< 0.028)
[2025-06-05] MEDS ORDERED: Cyclobenzaprine 10 MG TAB ONE (01:58)
== END 2025-06-05 03:00 ==
LOC: EEVIPCON 23:50 → CSHERS 23:50
DX: M54.50 Low back pain, unspecified (principal); G89.29 Other chronic pain; R07.9 Chest pain, unspecified; I11.0 Hypertensive heart disease with heart failure; I50.9 Heart failure, unspecified; K21.9 Gastro-esophageal reflux disease without esophagitis; E11.9 Type 2 diabetes mellitus without complications; J45.909 Unspecified asthma, uncomplicated; Z79.899 Other long term (current) drug therapy; Z79.82 Long term (current) use of aspirin; Z79.84 Long term (current) use of oral hypoglycemic drugs; Z79.51 Long term (current) use of inhaled steroids
CPT/HCPCS: 36415; 71045; 80053; 83880; 84484; 85025; 85379; 93005; 96374; J1790